=== PATIENT | male | born 1960 | race Caucasian/White ===

== ENCOUNTER 2025-06-14 14:35 | Outpatient (AMB) | payer OTHER, SELFPAY | END 2025-06-14 14:37 | disposition home or self-care (01) | LOC: HO.HMGAL 14:35 | PROVIDERS: PCP Internal Medicine; Visit Provider Registered Nurse Emergency | DX: J30.89 Other allergic rhinitis (principal) | CPT/HCPCS: 95117; 95165 ==

== ENCOUNTER 2025-07-19 14:27 | Outpatient (AMB) | payer OTHER, SELFPAY ==
--- OUTSIDE RECORDS SUMMARY | 2025-07-19 18:03 | XMS_ITS | Clinical Summary ---
Author Organization [facility] Address [address] [place] [address] Phone Care Team Providers Care Manager Social Media Name Role Phone Kimi Ponce MD Primary Care Provider [phone] Allergies Active Allergy Reactions Criticality Noted Date Comments Amoxicillin Hives Medium 07/29/2009 Medications cholecalciferol (VITAMIN D-3) 50 mcg (2,000 unit) tablet Take 1 tablet (2,000 Units total) by mouth 1 (one) time each day. 4 Active omega-3 acid ethyl esters (LOVAZA) 1 gram capsule Take 1 capsule (1,000 mg total) by mouth 1 (one) time each day. 2 Active multivitamin (MULTIPLE VITAMINS ORAL) Take 1,000 mg by mouth 1 (one) time each day. 2 Active cetirizine (ZyrTEC) 10 mg capsule Take 1 capsule (10 mg total) by mouth 1 (one) time each day if needed. 4 Active bisacodyL (DULCOLAX) 5 mg EC tablet Take 2 tablets by mouth right before beginning bowel prep. See instructions provided by the office 2 tablet 4 Active polyethylene glycol (Golytely) 236-22.74-6.74 -5.86 gram solution Take 4L by mouth once for one dose. May substitue any PEG. Starting at 6PM the night before your procedure drink 1 8oz glasses at your own pace until you complete half of the gallon. Finish 2nd half of the gallon 5 hours before your procedure. 4000 mL 4 Active levothyroxine (SYNTHROID, LEVOTHROID) 112 mcg tablet TAKE 1 TABLET BY MOUTH EVERY DAY 90 tablet 3 5 Active simvastatin (ZOCOR) 20 mg tablet TAKE 1 TABLET BY MOUTH EVERYDAY AT BEDTIME 90 tablet 1 5 Active Active Problems Problem Noted Date Diagnosed Date Vitamin D deficiency 06/04/2018 Hyperlipidemia 05/29/2018 Hypothyroidism 05/29/2018 Internal hemorrhoids with complication 8 Fatigue 05/28/2014 Diverticulosis 03/02/2014 Cervical radiculopathy 02/13/2013 Immunizations Immunization Administration Dates Next Due Hepatitis A Adult (Havrix; Vaqta) 19yo and older 05/21/2012 Hepatitis B Pediatric (Enger ix B; Recombivax HB) to less than 20 yo 04/14/2012 Influenza trivalent, 0.5mL, preservative free (Fluarix; FluLaval; Fluzone) ages 6mo and older (Afluria) 3 years and older 07/11/2011 Moderna SARS-CoV-2 COVID-19, mRNA, LNP-S, preservative free 08/23/2022 Tdap Tetanus diptheria acell ular pertussis (Boostrix; Adacel) 7yo and older 04/10/2024,07/05/2011 Surgical History Surgery Date Site/Laterality Comments NASAL SEPTUM SURGERY PROCEDURE: [place] SEPTOPLASTY/SUBMUCOUS RESECJ W/WO CARTILAGE GRF HAND SURGERY 2004 PROCEDURE: HISTORICAL HAND SURGERY Medical History Medical History Date Comments Hyperlipidemia Hypertension Diverticulosis Family History Medical History Relation Name Comments Thyroid disease Brother Coronary artery disease Father Other: metastize lung Mother Uterine cancer Mother Thyroid disease Sister Relation Name Status Comments Brother Father Mother Sister Social History Tobacco Use Types Packs/Day Years Used Date Smoking Tobacco: Former Cigarettes Q uit: 06/01/1983 Smokeless Tobacco: Never Tobacco Cessation:Counseling Given: Not Answered Alcohol Use Standard Drinks/Week Comments Yes 0 (1 standard drink = 0.6 oz pur e alcohol) Interpersonal Safety Answer Date Record ed Physical Abuse Unrecognized value 10/01/2024 Verbal Abuse Unrecognized value 10/01/2024 Sex and Gender Information Value Date Recorded Sex Assigned at Not on file Legal Sex Male 1:52 AM EST Gender Identity Not on file Sexual Orientation Not on file Obstetrics History Last Filed Vital Signs Vital Sign Reading Time Taken Comments Blood Pressure 132/80 10/12/2024 2:12 PM EST Pulse 64 10/12/2024 2:12 PM EST Temperature 36.7 C (98 F) 10/12/2024 2:12 PM EST Respiratory Rate 16 10/01/2024 2:00 PM EST Oxygen Saturation 99% 10/12/2024 2:12 PM EST Inhaled Oxygen Concentration - - Weight 90.7 kg (200 lb) 10/12/2024 2:12 PM EST Height 180.3 cm (5' 11 ) 10/12/2024 2:12 PM EST Body Mass Index 27.89 10/12/2024 2:12 PM EST Plan of Treatment Upcoming Encounters Date Type Department Care Team ([facility] st Contact Info) Description 10/12/2025 2:00 PM EST Office Visit Internal Medicine - [address] [place] [phone] Kimi Ponce MD [address] [place] [phone] Health Maintenance Due Date Last Done Comments Pneumococcal Vaccine: 50+ Years (1 of 1 - PCV) 2012 Hepatitis B Vaccines (2 of 3 - 19+ 3-dose series) 11/21/2012 10/24/2012, 04/14/2012 HIV Screening 09/01/2022 Social Influencers of Health Screening 09/01/2022 Depression Screening 09/23/2024 COVID-19 Vaccine (4 - 2024-2 6 season) 2025 08/23/2022, 10/27/2020, 09/29/2020 Influenza Vaccine (#1) 2025 07/11/2011 Cholesterol Screening (Lipid Panel) 12/25/2029 12/25/2024, 03/13/2024, 03/13/2024 DTaP,Tdap,and Td Vaccines (3 - Td or Tdap) 04/10/2034 04/10/2024, 07/05/2011 Colorectal Cancer Screening: Colonoscopy 10/01/2034 10/01/2024 RSV Immunization Adult Patients (1 - 1-dose 75+ series) 2037 Hepatitis A Vaccines Aged Out 10/24/2012, 05/21/2012 No longer eligible based on patient's age to complete this topic Hepatitis C Screening Completed 01/12/2021 Zoster Vaccines Completed 06/21/2023, 02/13/2023 HIB Vaccines Aged Out No longer eligi ble based on patient's age to complete this topic HPV Vaccines Aged Out No longer eligi ble based on patient's age to complete this topic IPV Vaccines Aged Out No longer eligi ble based on patient's age to complete this topic MMR Vaccines Aged Out No longer eligi ble based on patient's age to complete this topic Meningococcal ACWY Vaccine Aged Out N o longer eligible based on patient's age to complete this topic Meningococcal B Vaccine Aged Out No l onger eligible based on patient's age to complete this topic RSV Immunization Patients Under 20 months Aged Out No longer eligible b ased on patient's age to complete this topic Varicella Vaccines Aged Out No longer eligible based on patient's age to complete this topic Procedures Procedure Name Priority Date/Time Associated Diagnosis Comments LIPID PANEL WITH REFLEX TO DIRECT LDL Routine 12/25/2024 7:59 AM EDT Hyperlipidemia, unspecified hyperlipidemia type COLONOSCOPY Routine 10/01/2024 1:39 PM EST Encounter for screening for malignant neoplasm of colon HEPATITIS C SCREENING Routine 01/12/2021 from Last 3 Months or Most Recently Relevant to Health Maintenance Results * (ABNORMAL) Lipid panel with reflex to direct LDL (12/25/2024 7:59 AM EDT) Cholesterol 208(H) 0 - 200 mg/dL LAB CHEMISTRY METHOD 12/25/2024 8:43 AM EDT [facility] Triglycerides 139 0 - 150 mg/dL LAB CHEMISTRY METHOD 12/25/2024 8:43 AM EDT [facility] HDL 56 >=40 mg/dL LAB CHEMISTRY METHOD 12/25/2024 8:43 AM EDT [facility] LDL Calculated 124(H) 0 - 100 mg/dL LAB CHEMISTRY METHOD 12/25/2024 8:43 AM EDT [facility] VLDL Cholesterol Calin 27.8 mg/dL LAB CHEMISTRY METHOD 12/25/2024 8:43 AM EDT [facility] Non HDL Chol. (LDL+VLDL) 152(H) <145 mg/dL LAB CHEMISTRY METHOD 12/25/2024 8:43 AM EDT [facility] Chol/HDL Ratio 3.7 0.0 - 4.4 LAB CHEMISTRY METHOD 12/25/2024 8:43 AM EDT [facility] Blood Venous blood specimen / Unknown Venipuncture / Unknown 12/25/2024 7:59 AM EDT 12/25/2024 8:11 AM EDT us Thelma Little NP LAB BLOOD ORDERABLES Final Resul t [facility] [address] [place] [address], [place] [phone] * COLONOSCOPY Anesthesia - MAC; [facility] ENDOSCOPY (10/01/2024 1:39 PM EST) Anatomical Region Laterality Modality Endoscopy 10/01/2024 1:15 PM EST Impressions 10/01/2024 1:41 PM EST - Two diminutive polyps in the ascending colon, removed with a jumbo cold forceps. Resected and retrieved. - Diverticulosis in the sigmoid colon. - Internal hemorrhoids. - The examination was otherwise normal. Recommendation: - Discharge patient to home. - Await pathology results. - Repeat colonoscopy in 10 years for surveillance. Narrative 10/01/2024 1:41 PM EST [facility] GI Patient Name: Neeta Muse Procedure Date: 10/01/2024 1:15 PM Date of : 1960 Age: 64 Gender: Male Note Status: Finalized Attending MD: Dick May MD, Procedure Date No Time: 10/01/2024 Procedure: Colonoscopy Indications: Screening for colorectal malignant neoplasm Providers: Dick May MD Referring MD: Dick May MD Medicines: Monitored Anesthesia Care Complications: No immediate complications. Estimated blood loss: Minimal. Estimated Blood Loss: Estimated blood loss was minimal. Procedure: Pre-Anesthesia Assessment: - Prior to the procedure, a History and Physical was performed, and patient medications and allergies were reviewed. The patient is competent. The risks and benefits of the procedure and the sedation options and risks were discussed with the patient. All questions were answered and informed consent was obtained. Patient identification and proposed procedure were verified by the physician, the nurse, the director enterprise data architecture and the optical laboratory technician in the pre-procedure area in the endoscopy suite. Mental Status Examination: alert and oriented. Airway Examination: normal oropharyngeal airway and neck mobility. Respiratory Examination: clear to auscultation. CV Examination: normal. Prophylactic Antibiotics: The patient does not require prophylactic antibiotics. Prior Anticoagulants: The patient has taken no anticoagulant or antiplatelet agents. ASA Grade Assessment: II - A patient with mild systemic disease. After reviewing the risks and benefits, the patient was deemed in satisfactory condition to undergo the procedure. The anesthesia plan was to use monitored anesthesia care (MAC). Immediately prior to administration of medications, the patient was re-assessed for adequacy to receive sedatives. The heart rate, respiratory rate, oxygen saturations, blood pressure, adequacy of pulmonary ventilation, and response to care were monitored throughout the procedure. The physical status of the patient was re-assessed after the procedure. After I obtained informed consent, the scope was passed under direct vision. Throughout the procedure, the patient's blood pressure, pulse, and oxygen saturations were monitored continuously. The Colonoscope was introduced through the anus and advanced to the cecum, identified by appendiceal orifice and ileocecal valve. The colonoscopy was performed without difficulty. The patient tolerated the procedure well. The quality of the bowel preparation was good. Findings: The perianal and digital rectal examinations were normal. Two sessile polyps were found in the ascending colon. The polyps were diminutive in size. These polyps were removed with a jumbo cold forceps. Resection and retrieval were complete. Estimated blood loss was minimal. Multiple small-mouthed diverticula were found in the sigmoid colon. Internal hemorrhoids were found during retroflexion. The hemorrhoids were Grade I (internal hemorrhoids that do not prolapse). The exam was otherwise without abnormality. Procedure Code(s): --- Professional --- 05109, Colonoscopy, flexible; with biopsy, single or multiple Diagnosis Code(s): --- Professional --- D12.2, Benign neoplasm of ascending colon CPT copyright 2020 [employer]. All rights reserved. The codes documented in this report are preliminary and upon cleaning supervisor review may be revised to meet current compliance requirements. Dick May MD 10/01/2024 1:41:34 PM This report has been signed electronically.Dick May MD Number of Addenda: 0 Note Initiated On: 10/01/2024 1:15 PM Scope Withdrawal Time: 0 hours 12 minutes 16 seconds Scope In: 1:20:34 PM Scope Out: 1:40:11 PM Endoscopy Department at [facility] - [address] [place] [phone] Procedure Note Dick May MD - 10/01/2024 [facility] GI Patient Name: Neeta Muse Procedure Date: 10/01/2024 1:15 PM Date of : 1960 Age: 64 Gender: Male Note Status: Finalized Attending MD: Dick May MD, Procedure Date No Time: 10/01/2024 Procedure: Colonoscopy Indications: Screening for colorectal malignant neoplasm Providers: Dick May MD Referring MD: Dick May MD Medicines: Monitored Anesthesia Care Complications: No immediate complications. Estimated blood loss: Minimal. Estimated Blood Loss: Estimated blood loss was minimal. Procedure: Pre-Anesthesia Assessment: - Prior to the procedure, a History and Physicalwas performed, and patient medications and allergieswere reviewed. The patient is competent. The risks and benefits of the procedure and the sedation optionsand risks were discussed with the patient. Allquestions were answered and informed consent was obtained. Patient identification and proposed procedure were verified by the physician, the nurse, theanesthetist and the optical laboratory technician in the pre-procedure area in the endoscopy suite. Mental Status Examination: alertand oriented. Airway Examination: normal oropharyngeal airway and neck mobility. Respiratory Examination: clear to auscultation. CV Examination: normal. Prophylactic Antibiotics: The patient does notrequire prophylactic antibiotics. Prior Anticoagulants: The patient has taken no anticoagulant or antiplatelet agents. ASA Grade Assessment: II - A patient withmild systemic disease. After reviewing the risks and benefits, the patient was deemed in satisfactory condition to undergo the procedure. The anesthesia plan was to use monitored anesthesia care (MAC). Immediately prior to administration of medications, the patient was re-assessed for adequacy to receive sedatives. The heart rate, respiratory rate, oxygen saturations, blood pressure, adequacy of pulmonary ventilation, and response to care were monitored throughout the procedure. The physical status ofthe patient was re-assessed after the procedure. After I obtained informed consent, the scope was passed under direct vision. Throughout theprocedure, the patient's blood pressure, pulse, and oxygen saturations were monitored continuously. The Colonoscope was introduced through the anus and advanced to the cecum, identified by appendiceal orifice and ileocecal valve. The colonoscopy was performed without difficulty. The patient tolerated the procedure well. The quality of the bowel preparation was good. Findings: The perianal and digital rectal examinations were normal. Two sessile polyps were found in the ascendingcolon. The polyps were diminutive in size. These polypswere removed with a jumbo cold forceps. Resection and retrieval were complete. Estimated blood loss was minimal. Multiple small-mouthed diverticula were found inthe sigmoid colon. Internal hemorrhoids were found duringretroflexion. The hemorrhoids were Grade I (internal hemorrhoids that do not prolapse). The exam was otherwise without abnormality. Procedure Code(s): --- Professional --- 92843, Colonoscopy, flexible; with biopsy, singleor multiple Diagnosis Code(s): --- Professional --- D12.2, Benign neoplasm of ascending colon CPT copyright 2020 [employer]. All rights reserved. The codes documented in this report are preliminary and upon cleaning supervisor reviewmay be revised to meet current compliance requirements. Dick May MD 10/01/2024 1:41:34 PM This report has been signed electronically.Dick May MD Number of Addenda: 0 Note Initiated On: 10/01/2024 1:15 PM Scope Withdrawal Time: 0 hours 12 minutes 16 seconds Scope In: 1:20:34 PM Scope Out: 1:40:11 PM Endoscopy Department at [facility] - [address] [place] [phone] IMPRESSION: - Two diminutive polyps in the ascending colon, removed with a jumbo cold forceps. Resected and retrieved. - Diverticulosis in the sigmoid colon. - Internal hemorrhoids. - The examination was otherwise normal. Recommendation: - Discharge patient to home. - Await pathology results. - Repeat colonoscopy in 10 years forsurveillance. Dick May MD GI~PROCEDURE ORDERABLES Fin al Result * Hepatitis C Screening (01/12/2021) Hepatitis C Screening Abstracted Historical Provider HEALTH MAINTENANCE Final Result from Last 3 Months or Most Recently Relevant to Health Maintenance Insurance [facility] [address] [place] [address] Care Teams Manager Social Media Relationship Specialty Start Date End Date Kimi Ponce MD [address] [place] [address] [address] [place] [phone] PCP - General Internal Medicine 09/08/18
--- OUTSIDE RECORDS SUMMARY | 2025-07-19 18:03 | XMS_ITS | Data Portability ---
Author Organization [place] - [facility] Address [address] [address] Assessment Encounter Date Assessment Date Assessment LastModified by Organization Details LastModified Time 10/08/2024 10/08/2024 1. Right tongue lesion 64yo gentleman who presents today with a right tongue lesion with no associated symptoms. Biopsy was obtained today. Patient tolerated the procedure well. - Will call with pathology results Sharee Bagley [phone] [email or web address] Not available 10/09/2024 07:38:04 Plan of Treatment Reminders Order Date Submit Date Provider Last Modified By Organization Details Last Modified Time Details Appointments None record ed. Lab None record ed. Referral None record ed. Procedures None record ed. Surgeries None record ed. Imaging None record ed. Medication Orders None record ed. Patient TargetsNo targets recorded. Patient InstructionsNo instructions recorded. Reason for Referral None Reported. Results Created Date Observation Date Name Description Value Unit Range Abnormal Flag Note LastModifiedBy Organization Detail LastModifiedTime Result Notes None recorded. Problems Name Problem SNOMED Code Status Onset Date Resolution Date Notes Provider Name and Address Organization Details Recorded Time Mass of tongue [id number] Active 025 SOPHY SUAREZ MD [address] [place] [address], [phone] , [place] - [facility] 10/09/2024 07:38:10 Problem Notes None recorded. Procedures Surgical History Date Name Laterality Status Provider Name and Address Organization Details Recorded Time 10/08/2024 Biopsy Oral Cavity completed SOPHY SUAREZ MD [address] [place] [address],[address], [phone], [place] - [facility] 10/09/2024 07:37:24 Imaging Results None recorded. Procedure Notes None recorded. Medical Equipment None Reported. Medications Name Sig Start Date Stop Date Status Note LastModified by Organization Details LastModified Time azithromycin 250 mg tablet active Not Available Not Available Not Available simvastatin 10 mg tablet TAKE 1 TABLET BY MOUTH EVERY DAY active Not Available Not Available No t Available simvastatin 20 mg tablet TAKE 1 TABLET BY MOUTH EVERYDAY AT BEDTIME active Not Available Not Available No t Available levothyroxin e 112 mcg tablet TAKE 1 TABLET BY MOUTH EVERY DAY active Not Available Not Available No t Available Laxative (bisacodyl) 5 mg tablet,delay ed release TAKE 2 TABLETS BY MOUTH RIGHT BEFORE BEGINNING BOWEL PREP. SEE INSTRUCTION S PROVIDED BY THE OFFICE active Not Available Not Available No t Available cholecalcife rol (vitamin D3) 50 mcg (2,000 unit) tablet TAKE 1 TABLET BY MOUTH EVERY DAY active Not Available Not Available No t Available GaviLyte-G 236 gram-22.74 gram-6.74 gram-5.86 gram oral solution PLEASE SEE ATTACHED FOR DETAILED DIRECTIONS active Not Available Not Available N ot Available Vitals None Recorded Social History None recorded. Functional Status None recorded. Mental Status None recorded. Family History Nothing Reported. Medical History No medical history recorded. Past Encounters Encounter ID Performer Location Encounter Start Date Encounter Closed Date Diagnosis/Indication Diagnosis SNOMED-CT Code Diagnosis ICD10 Code Diagnosis IMO Codes Diagnosis Note [id number] SOPHY SUAREZ MD [facility] [address] [phone] 10/08/2024 15:18:24 10/08/2024 16:47:05 Mass of tongue [id number] R22.0 Health Concerns Section Related Observation LastModified by Organization Detai ls LastModified Time None Recorded Concern Status LastModified by Organization Details LastModified Time None Recorded Advance Directives Directive None Recorded Payers Insurance Date Sequence Insurance Name Policy Number Policy Johnson Covered Member ID Johnson Member ID Guarantor Name 10/12/2024 1 [facility] [id number] 1 Ian L Nossal [id number] Ian Nossal Notes Date Note Type Note Provider Name and Address Organization Details Recorded Time 10/08/2024 text/html ROS as noted in the HPI 64yo gentleman with a right lateral tongue lesion. This has been present for about 6 months. He occasionally bites on it. This was seen by his primary care provider who recommended evaluation. He denies any weight loss, pain, dysphonia, dysphagia.He has a remote history - quit smoking >40 years ago. SOPHY SUAREZ MD [address] [place] [address], [place], [phone], [place] - [facility] 10/09/2024 07:39:42
== END 2025-07-19 14:27 | disposition home or self-care (01) ==
LOC: HO.HMGAL 14:27
PROVIDERS: PCP Internal Medicine; Visit Provider Registered Nurse Emergency
DX: J30.89 Other allergic rhinitis (principal)
CPT/HCPCS: 95117; 95165

== ENCOUNTER 2025-08-30 11:26 | Outpatient (AMB) | payer OTHER, SELFPAY | END 2025-08-30 11:26 | disposition home or self-care (01) | LOC: HO.HMGAL 11:26 | PROVIDERS: PCP Internal Medicine; Visit Provider Registered Nurse Emergency | DX: J30.89 Other allergic rhinitis (principal) | CPT/HCPCS: 95117; 95165 ==